=== PATIENT | female | born 1995 | race African-American/Black ===

== ENCOUNTER 2017-01-28 22:52 | Emergency (ER) | payer OTHER ==
[~2017-01-28] VITALS: Ht 175.3 cm; Wt 64.4 kg
[~2017-01-28 22:52] MED LIST: IBUPROFEN PO
[2017-01-29 01:22] LABS: BUN/CREATININE RATIO 12.5; CALCIUM SERUM 10.1 mg/dL (8.4-10.2); CREATININE SERUM 0.8 mg/dL (0.6-1.4); GLOM FILT RATE Estimated 121.4 mL/min (>60); POTASSIUM 3.5 mmol/L (3.5-5.1)
== END 2017-01-29 02:12 | disposition home or self-care (01) ==
LOC: CED 22:52
PROVIDERS: Nurse Practitioner Family
DX: O21.0 Mild hyperemesis gravidarum (principal); Z3A.09 9 weeks gestation of pregnancy
CPT/HCPCS: 36415; 80048; 96361; 96374; 99284; J2550